=== PATIENT | female | born 1965 | race Caucasian/White ===

== ENCOUNTER 2019-08-08 17:32 | Emergency (ER) | payer MEDICAID ==
--- NOTE | 2019-08-13 08:50 | NUR ---
Note Received a note to phone patient's sister, Marlin [phone], with information on [facility]. Noted that patient is not over age 65. Sister stated this is a temporary need for prison assistance at home until her back feels better. [facility] would not be appropriate under this condition. Discussed that they should follow up with PCP who can work with patient's insurance to determine if patient would qualify for PT or SNF. Call ended.
== END 2019-08-08 18:52 | disposition home or self-care (01) ==
LOC: SED 17:32
DX: M53.3 Sacrococcygeal disorders, not elsewhere classified (principal)
CPT/HCPCS: 72100-TC; 96372; 99283

== ENCOUNTER 2019-08-21 13:45 | Emergency (ER) | payer MEDICAID ==
[~2019-08-21] VITALS: Ht 160 cm; Wt 78.9 kg
[2019-08-21 13:45] VITALS: BP_SYST 134
--- NOTE | 2019-08-21 13:50 | NUR ---
Patient triaged and placed in waiting room. VSS and patient appears in no acute distress at this time. Accompanied by CAREGIVER, awaiting available bed, and MD notified of need for MSE.
--- NOTE | 2019-08-21 15:01 | NUR ---
BROUGHT BACK TO BED #8 AND REPORT GIVEN TO ANCELMO
--- NOTE | 2019-08-21 15:02 | NUR ---
PT AAOx4 ambulated into ED c/o 02/11 pain to lower back s/p trip and fall x a couple weeks ago. Pt denies loss of bowel/bladder function. Pt able to ambulated with pain. No deformities noted. No other injuries/complaints per pt/noted. Will continue to monitor.
--- NOTE | 2019-08-21 15:04 | NUR ---
PIA Vieira at bedside examining patient.
[2019-08-21] MEDS ORDERED: CYCLOBENZAPRINE HCL 10 MG TABLET (FLEXERIL) PO ONE (15:15)
[2019-08-21] MEDS ORDERED: KETOROLAC TROMETHAMINE 30 MG VIAL IM ONE (15:15)
--- NOTE | 2019-08-21 15:18 | NUR ---
Pt taken to radiology via wheelchair in stable condition
--- NOTE | 2019-08-21 15:32 | NUR ---
Pt returned from radiology in stable condition
--- NOTE | 2019-08-21 16:19 | NUR ---
Patient given written and verbal discharge instructions and verbalizes understanding. ER MD Vieira discussed with patient the results and treatment provided. Patient in stable condition. ID arm band removed. Rx of [place] 5-325 given. Patient educated on pain management and to follow up with PMD. Pain Scale 0. Opportunity for questions provided and answered. Medication side effect fact sheet provided.
[2019-08-21 16:20] VITALS: BP_SYST 124
== END 2019-08-21 16:19 | disposition home or self-care (01) ==
LOC: SED 13:45
DX: S22.089A Unspecified fracture of T11-T12 vertebra, initial encounter for closed fracture (principal); S32.010A Wedge compression fracture of first lumbar vertebra, initial encounter for closed fracture; W17.89XA Other fall from one level to another, initial encounter; Y93.89 Activity, other specified; Y92.89 Other specified places as the place of occurrence of the external cause; Y99.8 Other external cause status
CPT/HCPCS: 72131; 96372; 99284; J1885